=== PATIENT | female | born 1950 | race Caucasian/White ===

== ENCOUNTER → 2019-04-26 | Outpatient (CLI) | payer MEDICARE, BC | LOC: COL.RAD 12:12 | DX: M47.27 Other spondylosis with radiculopathy, lumbosacral region (principal); M43.16 Spondylolisthesis, lumbar region ==

== ENCOUNTER → 2020-04-05 | Outpatient (CLI) | payer MEDICARE, BC | LOC: MHCPAIN 13:55 | DX: M47.817 Spondylosis without myelopathy or radiculopathy, lumbosacral region (principal); M53.3 Sacrococcygeal disorders, not elsewhere classified; M79.7 Fibromyalgia; G89.29 Other chronic pain | CPT/HCPCS: G0463 ==

== ENCOUNTER → 2020-05-09 | Outpatient (CLI) | payer MEDICARE, BC | LOC: MHCPAIN 13:31 | DX: M47.817 Spondylosis without myelopathy or radiculopathy, lumbosacral region (principal); M53.3 Sacrococcygeal disorders, not elsewhere classified; M54.5 Low back pain; G89.29 Other chronic pain | CPT/HCPCS: G0463 ==

== ENCOUNTER → 2020-06-07 | Outpatient (CLI) | payer MEDICARE, BC | LOC: MHCPAIN 13:42 | DX: M47.816 Spondylosis without myelopathy or radiculopathy, lumbar region (principal); M53.3 Sacrococcygeal disorders, not elsewhere classified; M54.5 Low back pain; G89.29 Other chronic pain | CPT/HCPCS: G0463 ==

== ENCOUNTER → 2020-07-11 | Outpatient (CLI) | payer MEDICARE, BC | LOC: MHCPAIN 13:24 | DX: M47.817 Spondylosis without myelopathy or radiculopathy, lumbosacral region (principal); M79.7 Fibromyalgia; M53.3 Sacrococcygeal disorders, not elsewhere classified; M54.5 Low back pain; G89.29 Other chronic pain | CPT/HCPCS: G0463 ==

== ENCOUNTER → 2020-07-17 | Outpatient (CLI) | payer MEDICARE, BC | LOC: MHCPAIN 13:30 | DX: M47.817 Spondylosis without myelopathy or radiculopathy, lumbosacral region (principal); M54.16 Radiculopathy, lumbar region | CPT/HCPCS: J1100; Q9967 ==

== ENCOUNTER → 2020-08-15 | Outpatient (CLI) | payer MEDICARE, BC | LOC: MHCPAIN 13:33 | DX: M47.816 Spondylosis without myelopathy or radiculopathy, lumbar region (principal); M54.16 Radiculopathy, lumbar region; M53.3 Sacrococcygeal disorders, not elsewhere classified; G89.29 Other chronic pain | CPT/HCPCS: G0463 ==

== ENCOUNTER 2020-09-27 11:15 | Outpatient (RCR) | payer MEDICARE, BC | END 2020-10-24 | disposition home or self-care (01) | LOC: WSPT | DX: M79.7 Fibromyalgia (principal) ==

== ENCOUNTER → 2020-10-17 | Outpatient (CLI) | payer MEDICARE, BC | LOC: MHCPAIN 13:43 | DX: M47.816 Spondylosis without myelopathy or radiculopathy, lumbar region (principal); M54.5 Low back pain; M53.3 Sacrococcygeal disorders, not elsewhere classified; M79.2 Neuralgia and neuritis, unspecified | CPT/HCPCS: G0463 ==

== ENCOUNTER → 2020-12-13 | Outpatient (CLI) | payer MEDICARE, BC | LOC: MHCPAIN 13:36 | DX: M25.512 Pain in left shoulder (principal); M47.896 Other spondylosis, lumbar region; M79.2 Neuralgia and neuritis, unspecified; M53.3 Sacrococcygeal disorders, not elsewhere classified | CPT/HCPCS: G0463 ==

== ENCOUNTER → 2021-03-07 | Outpatient (CLI) | payer MEDICARE, BC ==
[~2021-03-07] MED LIST: ADVIL LIQUI-GE200 MG PO; ASPIRIN E.C. 8181 MG PO; DESYREL 50MG50 MG PO; ELIQUIS 5MG PO; FENTANYL 25 MCG TD; FERRO-TIME325 MG PO; GAS RELIEF125 MG PO; LYRICA300 MG PO; NORCO 325 MG-51 TAB PO; PEPCID AC20 MG PO; TYLENOL 325MG325 MG PO
== END ==
LOC: MHCPAIN 13:54
DX: M47.896 Other spondylosis, lumbar region (principal); M53.3 Sacrococcygeal disorders, not elsewhere classified; M79.2 Neuralgia and neuritis, unspecified
CPT/HCPCS: G0463

== ENCOUNTER 2021-03-13 19:24 | Inpatient (IN) | payer MEDICARE, BC ==
[~2021-03-13] VITALS: Ht 167.6 cm; Wt 86.1 kg
--- NOTE | 2021-03-13 20:40 | NUR ---
ADMITTED TO ROOM 326 PER CART. A&OX4. ORIENTED TO ROOM.
[2021-03-13 20:46] VITALS: BP 148/82; PULSE 69; TEMP 97.4
[2021-03-13] MEDS ORDERED: FENTANYL 25 MCG TD (20:48)
[2021-03-13] MEDS ORDERED: NORCO 325 MG-51 TAB PO (20:50)
[2021-03-13] MEDS ORDERED: LYRICA300 MG PO (20:50)
[2021-03-13] MEDS ORDERED: DESYREL 50MG50 MG PO (20:51)
[2021-03-13] MEDS ORDERED: PEPCID AC20 MG PO (20:52)
[2021-03-13] MEDS ORDERED: ADVIL LIQUI-GE200 MG PO (20:52)
--- NOTE | 2021-03-13 22:40 | NUR ---
REPORTED TROPONNIN LEVEL TO AMARI MORRIS.
--- NOTE | 2021-03-13 22:53 | NUR ---
PT REPORTS FENTANNYL PATCH WAS PLACED YESTERDAY AT 1200.
[2021-03-13 23:58] VITALS: BP 129/63; PULSE 91; TEMP 98.4
--- NOTE | 2021-03-14 | NUR ---
PT RESTING. NO DISTRESS AT THIS ITME. SBA TO BR. PT GETS SL DYSPNEIC ON O2 1L NC. VOIDING W/O DIFFICULTY. PT RELATES OCCASIONALLY HAS SMALL INTERMITTENT STABBING PAINS IN CHEST SINCE THIS AM. HAS HX CHRONIC PAIN/ FIBROMYALGIA AND HAS 25MCG FENTANNYL PATCH TO RT SHOULDER. PT HAS PAIN LLE TO TOUCH. ANDI HOSE TO RLE. CALL LIGHT IN REACH. PT WILL CALL FOR ASSIST TO BR.
--- NOTE | 2021-03-14 03:54 | NUR ---
PT HAS BEEN RESTING WELL. NO DISTRESS.
[2021-03-14 04:00] VITALS: BP 107/67; PULSE 64; TEMP 97.7
--- NOTE | 2021-03-14 05:03 | NUR ---
PT RESTING QUIETLY. NO COMPLAINTS.
[2021-03-14 06:52] LABS: BASO # 0.1 K/mm3 (0.0-0.2); BASO % 0.7 % (0.0-2.0); EOS # 0.2 K/mm3 (0.0-0.7); EOS % 1.8 % (0.0-4.0); GRAN # 5.1 K/mm3 (1.4-6.5); HEMATOCRIT 40.6 % (37.0-47.0); HEMOGLOBIN 13.1 g/dl (12.5-16.0); LYMPH # 1.8 K/mm3 (1.2-3.4); LYMPH % 21.3 % (20.0-51.0); MEAN CELL VOLUME 88 fl (80.0-100.0); MEAN CORPUSCULAR HEMOGLOBIN 28 pg (27-31); MEAN CORPUSCULAR HGB CONC 32 g/dl (33.0-37.0); MEAN PLATELET VOLUME 10.3 fl (7.4-10.4); MONO # 1.2 K/mm3 (0.1-0.6); MONO % 14.1 % (1.7-9.3); PLATELET COUNT 179 K/mm3 (130-400); RED BLOOD COUNT 4.63 M/mm3 (4.10-5.30); REDCELL DISTRIBUTION WIDTH-CV 13.6 % (11.5-14.5)
[2021-03-14 07:12] LABS: CALCIUM 8.8 mg/dL (8.4-10.2); CREATININE, serum 1.03 mg/dL (0.57-1.11); POTASSIUM 3.9 mmol/L (3.5-4.5)
[2021-03-14 08:00] VITALS: BP 100/78; PULSE 64; TEMP 98.1
--- NOTE | 2021-03-14 08:55 | NUR ---
PT UP TO BR WITH SBA. DOPPLER DONE BY ADRIAN AND REPORTED THAT PT HAS LG CLOT FROM MID THIGH TO ANKLE. LOVENOX GIVEN SQ ORDERED. PT APPEARS TO NOT UNDERSTAND HER CLOTTING DISORDER. SHE IS ASKING WHAT SHE ATE TO CAUSE CLOT. 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
--- NOTE | 2021-03-14 09:37 | NUR ---
Initial visit; Patient thanked Purchasing And Claims Supervisor for looking in on her and offering God's blessings.
[2021-03-14 11:28] VITALS: BP 147/89; PULSE 66; TEMP 97.4
--- NOTE | 2021-03-14 12:41 | NUR ---
Char Filter Operator Helper met with patient to discuss discharge planning. Patient lives with her , Darrel (ph#[phone]) and sees Dr. Muñiz for primary care. Patient obtains medications from [facility] with no difficulties. Patient does not use any DME at home and is normally independent with ADLS. Patient advised she believes she has Advance Directives that designate her daughter, Jolene but she isn't sure. Patient has three children: Jolene, Young, and Vita. Patient states she plans to return home upon discharge. PT is recommending home once medically stable. Discharge Plan: Home with family
[2021-03-14 16:37] VITALS: BP 148/81; PULSE 61; TEMP 97.7
[2021-03-14 20:00] VITALS: BP 167/91; PULSE 73; TEMP 98.1
[2021-03-15] VITALS: BP 118/65; PULSE 56; TEMP 98.4
[2021-03-15 04:00] VITALS: BP 141/83; PULSE 56; TEMP 97.3
[2021-03-15 06:12] LABS: BASO # 0.1 K/mm3 (0.0-0.2); BASO % 0.6 % (0.0-2.0); EOS # 0.3 K/mm3 (0.0-0.7); EOS % 3.1 % (0.0-4.0); GRAN # 5.1 K/mm3 (1.4-6.5); GRAN % 58.9 % (42.2-75.2); HEMOGLOBIN 12.8 g/dl (12.5-16.0); LYMPH # 2.2 K/mm3 (1.2-3.4); LYMPH % 25.3 % (20.0-51.0); MEAN CELL VOLUME 88 fl (80.0-100.0); MEAN CORPUSCULAR HEMOGLOBIN 28 pg (27-31); MEAN CORPUSCULAR HGB CONC 32 g/dl (33.0-37.0); MEAN PLATELET VOLUME 9.7 fl (7.4-10.4); MONO % 11.9 % (1.7-9.3); PLATELET COUNT 184 K/mm3 (130-400); RED BLOOD COUNT 4.55 M/mm3 (4.10-5.30); REDCELL DISTRIBUTION WIDTH-CV 13.6 % (11.5-14.5)
[2021-03-15 06:31] LABS: CREATININE, serum 0.95 mg/dL (0.57-1.11); POTASSIUM 3.9 mmol/L (3.5-4.5)
[2021-03-15 08:00] VITALS: BP 114/63; PULSE 70; TEMP 98.2
[2021-03-15] MEDS ORDERED: ELIQUIS 5MG PO (09:59)
[2021-03-15] MEDS ORDERED: ASPIRIN E.C. 8181 MG PO (10:03)
[2021-03-15] MEDS ORDERED: TYLENOL 325MG325 MG PO (10:06)
[2021-03-15 11:20] VITALS: BP 139/68; PULSE 58; TEMP 97
--- NOTE | 2021-03-15 12:57 | NUR ---
PT DISCHARGE HOME ON STABLE CONDITION. D/C INSTRUCTIONS, MEDICATION AND FOLLOW UP REVIEW WITH PT.QUESTIONS AND CONCERNS ADDRESSED.
[2021-03-16] MEDS ORDERED: GAS RELIEF125 MG PO (13:58)
== END 2021-03-15 12:59 | disposition home or self-care (01) | DRG 280 ==
LOC: MEDICAL 19:24 → SURG 20:45
PROVIDERS: Physician Assistant; Student in an Organized Health Care Education/Training Program; ADMIT Internal Medicine
DX: I82.412 Acute embolism and thrombosis of left femoral vein (principal); I26.99 Other pulmonary embolism without acute cor pulmonale; I21.A1 Myocardial infarction type 2; J96.01 Acute respiratory failure with hypoxia; D68.51 Activated protein C resistance; G89.29 Other chronic pain; I82.462 Acute embolism and thrombosis of left calf muscular vein; I51.9 Heart disease, unspecified; M79.7 Fibromyalgia; I44.7 Left bundle-branch block, unspecified; K21.9 Gastro-esophageal reflux disease without esophagitis; M81.0 Age-related osteoporosis without current pathological fracture; N18.9 Chronic kidney disease, unspecified; K58.9 Irritable bowel syndrome, unspecified
CPT/HCPCS: 99223-AI; 99233-AI; 99239; J1650

== ENCOUNTER 2021-03-16 08:28 | Inpatient (IN) | payer MEDICARE, BC ==
[~2021-03-16] VITALS: Ht 167.6 cm; Wt 87.3 kg
[~2021-03-16 08:28] MED LIST changes: -FERRO-TIME325 MG PO; -GAS RELIEF125 MG PO
[2021-03-16 09:19] LABS: BASO % 0.5 % (0.0-2.0); EOS # 0.1 K/mm3 (0.0-0.7); EOS % 1.4 % (0.0-4.0); GRAN # 6.1 K/mm3 (1.4-6.5); GRAN % 75.8 % (42.2-75.2); HEMATOCRIT 38.9 % (37.0-47.0); HEMOGLOBIN 12.7 g/dl (12.5-16.0); LYMPH % 12.8 % (20.0-51.0); MEAN CELL VOLUME 87 fl (80.0-100.0); MEAN CORPUSCULAR HEMOGLOBIN 28 pg (27-31); MEAN CORPUSCULAR HGB CONC 33 g/dl (33.0-37.0); MEAN PLATELET VOLUME 9.6 fl (7.4-10.4); MONO # 0.8 K/mm3 (0.1-0.6); MONO % 9.4 % (1.7-9.3); PLATELET COUNT 187 K/mm3 (130-400); RED BLOOD COUNT 4.49 M/mm3 (4.10-5.30); REDCELL DISTRIBUTION WIDTH-CV 13.4 % (11.5-14.5)
[2021-03-16 09:24] LABS: INR 1.5 (0.8-3.0); PROTHROMBIN TIME 16.7 SECONDS (9.7-12.8)
[2021-03-16 09:33] LABS: ALBUMIN 3.6 gm/dL (3.4-4.8); BILIRUBIN,TOTAL 0.7 mg/dL (0.2-1.2); C-REACTIVE PROTEIN 3.01 mg/dL (0.00-0.50); CALCIUM 8.9 mg/dL (8.4-10.2); CREATININE, serum 0.95 mg/dL (0.57-1.11); POTASSIUM 3.9 mmol/L (3.5-4.5); TOTAL PROTEIN 7.3 gm/dL (6.2-8.1)
[2021-03-16 10:42] LABS: COLLECTION METHOD CLEAN CATCH
[2021-03-16 10:58] LABS: PH 7 (5-8); SQUAMOUS EPITHELIAL 0-2 /hpf (0-10); URINE APPEARANCE Clear (CLEAR/HAZY); URINE BACTERIA None Seen /hpf (NONE SEEN); URINE BILIRUBIN Negative (NEGATIVE); URINE BLOOD 1+ (NEGATIVE); URINE COLOR Straw (YELLOW); URINE GLUCOSE Negative (NEGATIVE); URINE KETONE Negative (NEGATIVE); URINE LEUKOCYTE ESTERASE Negative (NEGATIVE); URINE NITRATE Negative (NEGATIVE); URINE PROTEIN(semi-quant) Negative (NEGATIVE); URINE RBC 0-2 /hpf (0-2); URINE UROBILINOGEN Negative (NEGATIVE)
[2021-03-16 11:34] VITALS: BP 140/72; PULSE 68
--- NOTE | 2021-03-16 11:35 | NUR ---
SEE MERGE FOR ALL MEDICATION ADMINISTRATION TIMES/DOSAGES AND INTRA/POST PROCEDURE SEDATION ASSESSMENTS.
[2021-03-16] MEDS ORDERED: GAS RELIEF125 MG PO (13:58)
[2021-03-16 14:37] LABS: HEMATOCRIT 34.1 % (37.0-47.0)
[2021-03-16 16:00] VITALS: BP 136/64; PULSE 68; TEMP 98.1
[2021-03-16 18:17] LABS: HEMOGLOBIN 11.1 g/dl (12.5-16.0)
[2021-03-16 18:19] LABS: HEMATOCRIT 33.4 % (37.0-47.0)
--- NOTE | 2021-03-16 19:43 | NUR ---
THE PATIENT HAD UNEVENTFUL EVENING. STILL COMPLAINS OF PAIN IN THE ABD. PT IS RCVING [place] HAS A FENTANYL PATCH ON THE UPPER LEFT ARM. THE PATIENT IS SCARED TO MOVE SHE BELIEVES IT WILL CONTINUE THE BLEEDING. SHE HAS BEEN USING THE BEDPAN NEEDED TODAY. NO FURTHER CONERNS. REPORT GIVEN TO RUSS ALEXANDRE.
[2021-03-16 20:42] VITALS: BP 108/66; PULSE 63; TEMP 97.3
--- NOTE | 2021-03-16 23:54 | NUR ---
Patient A/Ox4. Patient c/o pain to RLQ abdomen area 7 or 8 out of 10. RLQ hematoma site remains firm. IVC filter site dressing C/D/I. All scheduled meds given per MAY. PRN Vadito given for pain. Call light in reach. Will continue to monitor.
[2021-03-16 23:59] VITALS: BP 95/61; PULSE 75; TEMP 98.1
[2021-03-17 01:00] VITALS: BP 101/60; PULSE 72
[2021-03-17 03:13] VITALS: BP 109/57; PULSE 72; TEMP 98.2
--- NOTE | 2021-03-17 06:15 | NUR ---
Contacted by oil well perforator operator that patient having ST depression at 02:45 am. Called MELI Ya and updated. EKG was ordered by MELI Ya. Called Dr. Ely for cardiology consult at 6 am. Patient's RLQ abdominal hematoma site slightly softer compared to last night. Patient received PRN pain med twice over the night for RLQ abdominal pain. Call light in reach. Will continue to monitor.
--- NOTE | 2021-03-17 07:09 | NUR ---
PT LAYING IN BED AT THIS TIME. STATES THAT HER PAIN IS MILD. THE PATIENT'S HEMATOMA HAS BEGUN TO SOFTEN AND REDUCE. WILL CONTINUE TO MONITOR AND RETURN FOR FULL ASSESSMENT.
[2021-03-17 07:49] VITALS: BP 109/60; PULSE 74; TEMP 98.5
[2021-03-17 07:50] LABS: CALCIUM 8.4 mg/dL (8.4-10.2); CREATININE, serum 1.02 mg/dL (0.57-1.11); POTASSIUM 4.3 mmol/L (3.5-4.5)
[2021-03-17 08:33] LABS: BASO % 0.2 % (0.0-2.0); EOS % 0.1 % (0.0-4.0); GRAN # 10.4 K/mm3 (1.4-6.5); LYMPH # 1.7 K/mm3 (1.2-3.4); LYMPH % 12.4 % (20.0-51.0); MEAN CELL VOLUME 87 fl (80.0-100.0); MEAN CORPUSCULAR HGB CONC 33 g/dl (33.0-37.0); MEAN PLATELET VOLUME 10.4 fl (7.4-10.4); MONO # 1.5 K/mm3 (0.1-0.6); MONO % 10.9 % (1.7-9.3); PLATELET COUNT 196 K/mm3 (130-400); RED BLOOD COUNT 3.12 M/mm3 (4.10-5.30); REDCELL DISTRIBUTION WIDTH-CV 13.6 % (11.5-14.5)
[2021-03-17 08:37] LABS: HEMATOCRIT 27.1 % (37.0-47.0); HEMOGLOBIN 8.9 g/dl (12.5-16.0); MEAN CORPUSCULAR HEMOGLOBIN 29 pg (27-31)
[2021-03-17 11:06] VITALS: BP 130/69; PULSE 77; TEMP 98.1
--- NOTE | 2021-03-17 14:50 | NUR ---
Brass Molder met with patient to discuss discharge planning. Patient was discharged from hospital earlier this week and states she was unable to follow up with her primray care physician during this time. Patient lives in [place] with her , Darrel (ph#[phone]) [address] sees Dr. Muñiz for primary care. Patient obtains medications from [facility] and does not normally use any DME. Patient advised she has been getting around at home okay since her previous discharge and that she is independent with ADLS. Patient does not have Advance Directives in EMR, but has three children: Jolene, Young, and Vita. SW discussed Home Health services with patient who is agreeable and would like referral sent to [facility]. NGUYEN contacted Jackie at [facility] and faxed referral. Discharge Plan: Home with [facility]
[2021-03-17 15:38] LABS: HEMATOCRIT 25.4 % (37.0-47.0); HEMOGLOBIN 8.4 g/dl (12.5-16.0)
[2021-03-17 16:53] VITALS: BP 136/60; PULSE 81; TEMP 97.3
--- NOTE | 2021-03-17 18:32 | NUR ---
PT HAS HAD UNEVENTFUL DAY. THE HEMATOMA ON HER ABD HAS DECREASED IN SIZE AND HAS SOFTENED. THE PATIENT'S PAIN HOWEVER, HAS REMAINED HIGHER D/T TENDERNESS OF THE HEMATOMA AND PATIENT HAS BEEN RECEIVING PAIN MEDICATION FOR THAT.
[2021-03-17 19:31] VITALS: BP 105/74; PULSE 80; TEMP 98.2
--- NOTE | 2021-03-17 22:13 | NUR ---
Patient pleasant, alert and oriented. Patient denies chest pain or SOB. Patient reports RLQ abdominal pain 7 or 8 out of 10. RLQ abdominal hematoma site sofer than yesterday. All scheduled meds given per MAY. Ice water provided per patient request. Call light in reach. Will continue to monitor.
[2021-03-18] VITALS (7 sets, daily range): BP systolic 99–122; BP diastolic 42–65; PULSE 72–98; TEMP 97.9–99.1
[2021-03-18 06:25] LABS: MEAN CELL VOLUME 85 fl (80.0-100.0); MEAN CORPUSCULAR HGB CONC 33 g/dl (33.0-37.0); MEAN PLATELET VOLUME 10.1 fl (7.4-10.4); PLATELET COUNT 189 K/mm3 (130-400); RED BLOOD COUNT 2.69 M/mm3 (4.10-5.30); REDCELL DISTRIBUTION WIDTH-CV 13.7 % (11.5-14.5)
[2021-03-18 06:30] LABS: HEMATOCRIT 22.8 % (37.0-47.0); HEMOGLOBIN 7.5 g/dl (12.5-16.0); MEAN CORPUSCULAR HEMOGLOBIN 28 pg (27-31)
[2021-03-18 06:31] LABS: CALCIUM 8.5 mg/dL (8.4-10.2); CREATININE, serum 0.98 mg/dL (0.57-1.11)
[2021-03-18 15:31] LABS: HEMATOCRIT 22.9 % (37.0-47.0); HEMOGLOBIN 7.6 g/dl (12.5-16.0)
--- NOTE | 2021-03-18 19:08 | NUR ---
Patient had an uneventful day. PRN pain medications given. Shift assessment performed. Scheduled medications given. Patient denies any further needs at this time. VSS. Patient A&O. Call light in reach.
--- NOTE | 2021-03-18 21:54 | NUR ---
Patient resting in bed with eyes closed upon enter the room. Patient easily awake with voice. Patient pleasant, A/Ox4. Patient reports pain to RLQ abdominal area 7 out of 10. Patient received pain med 1 hour ago. RLQ abdominal hematoma site softer compared to yesterday. All scheduled meds given per MAY. Patient denies further needs at this time. Call light in reach. Will continue to monitor.
[2021-03-19] VITALS (11 sets, daily range): BP systolic 108–136; BP diastolic 58–76; PULSE 70–87; TEMP 98–100.2
--- NOTE | 2021-03-19 02:54 | NUR ---
Patient c/o pain 3 out of 10 to her back side of neck. Patient denies chest pain, SOB, headache or dizziness. Called EJ Cullen and updated. Applied K-Pad to her back of neck area per order. PRN pain med given per MAY. Call light in reach. Will continue to monitor.
--- NOTE | 2021-03-19 06:34 | NUR ---
Patient states feeling better this morning. Patient denies need for pain med at this time. Hot tea provided per patient request. Call light in reach.
[2021-03-19 07:12] LABS: MEAN CELL VOLUME 87 fl (80.0-100.0); MEAN CORPUSCULAR HGB CONC 33 g/dl (33.0-37.0); MEAN PLATELET VOLUME 9.7 fl (7.4-10.4); PLATELET COUNT 196 K/mm3 (130-400); RED BLOOD COUNT 2.36 M/mm3 (4.10-5.30); REDCELL DISTRIBUTION WIDTH-CV 13.9 % (11.5-14.5)
[2021-03-19 07:23] LABS: CALCIUM 8.3 mg/dL (8.4-10.2); CREATININE, serum 0.92 mg/dL (0.57-1.11); POTASSIUM 3.6 mmol/L (3.5-4.5)
[2021-03-19 07:32] LABS: HEMATOCRIT 20.6 % (37.0-47.0); MEAN CORPUSCULAR HEMOGLOBIN 29 pg (27-31)
[2021-03-19 07:34] LABS: HEMOGLOBIN 6.8 g/dl (12.5-16.0)
--- NOTE | 2021-03-19 07:49 | NUR ---
CRITICAL HGB CALLED TO RANDELL, WHO READ BACK THE RESULTS.
--- NOTE | 2021-03-19 12:49 | NUR ---
First visit from the hotel server. No needs right now.
--- NOTE | 2021-03-19 18:00 | NUR ---
Scheduled medications given. Shift assessment performed. Patient recieved 1 unit of blood today. Tolerated well. HGB will be rechecked this PM at 1900. Patient given PRN medication 2x today for ABD pain. Hematoma on ABD has reduced in size and continues to soften. Patient is currently on RA. VSS. Patient A&O. Patient denies any further pain, discomfort, or further needs at this time. Call light in reach.
[2021-03-19 19:17] LABS: HEMATOCRIT 24.7 % (37.0-47.0); HEMOGLOBIN 8.2 g/dl (12.5-16.0)
--- NOTE | 2021-03-19 20:45 | NUR ---
Patient is resting in bed, alert and oriented x 4. Complains of pain but refused pain medication at this time. Telemetry in place, NSR. Assessment completed, medications provided. No further needs at this time. Call light within reach.
--- NOTE | 2021-03-19 23:44 | NUR ---
Patient with some temp 100.2 Tylenol provided. Aysha Tinsley notified.
[2021-03-20 03:44] VITALS: BP 123/60; PULSE 72; TEMP 98.7
--- NOTE | 2021-03-20 06:15 | NUR ---
Patient is now with VSS, no fever. She asked for pain medication once. No other issues at night. Report will be given to day RN.
[2021-03-20 06:22] LABS: BASO % 0.4 % (0.0-2.0); EOS # 0.3 K/mm3 (0.0-0.7); EOS % 2.9 % (0.0-4.0); GRAN # 6.1 K/mm3 (1.4-6.5); GRAN % 67.8 % (42.2-75.2); LYMPH # 1.5 K/mm3 (1.2-3.4); LYMPH % 16.4 % (20.0-51.0); MEAN CELL VOLUME 90 fl (80.0-100.0); MEAN CORPUSCULAR HGB CONC 32 g/dl (33.0-37.0); MEAN PLATELET VOLUME 9.7 fl (7.4-10.4); MONO # 1.1 K/mm3 (0.1-0.6); MONO % 11.7 % (1.7-9.3); PLATELET COUNT 222 K/mm3 (130-400); RED BLOOD COUNT 2.56 M/mm3 (4.10-5.30); REDCELL DISTRIBUTION WIDTH-CV 14.1 % (11.5-14.5)
[2021-03-20 06:35] LABS: CALCIUM 8.3 mg/dL (8.4-10.2); CREATININE, serum 0.88 mg/dL (0.57-1.11); POTASSIUM 3.9 mmol/L (3.5-4.5)
[2021-03-20 06:38] LABS: HEMATOCRIT 22.9 % (37.0-47.0); HEMOGLOBIN 7.3 g/dl (12.5-16.0); MEAN CORPUSCULAR HEMOGLOBIN 29 pg (27-31)
[2021-03-20 08:02] VITALS: BP 139/60; PULSE 97; TEMP 98
[2021-03-20 11:28] VITALS: BP 120/61; PULSE 79; TEMP 98.1
[2021-03-20 16:30] VITALS: BP 114/64; PULSE 86; TEMP 98.2
--- NOTE | 2021-03-20 18:55 | NUR ---
Patient has had an ok day. Scheduled medications given. Shift assessment performed. Patient has been C/O 09/09 pain intermittently today. Patient states that pain is on her right side and has moved up into her RUQ. Decribes it as a pulling sensation that increases with movement. Patient states that fentanyl patch and hydrocodone have not been effective. EJ Pro notified. Patient denies any further pain, discomfort, SOA, or further needs at this time. VSS. Patient A&O. Call light in reach.
[2021-03-20 20:25] VITALS: BP 129/58; PULSE 84; TEMP 99.6
--- NOTE | 2021-03-20 20:50 | NUR ---
Patient is sitted in bed, alert and oriented x 4. States she continues having pain in her right abdomen when walling and in the right back when sitting. Taking norco PRN. Telemetry in place, NSR. Assessment completed, meds provided. No further needs at this time. Call light within reach.
[2021-03-20 23:30] VITALS: BP 117/65; PULSE 81; TEMP 98.8
[2021-03-21 04:25] VITALS: BP 128/60; PULSE 80; TEMP 99.6
--- NOTE | 2021-03-21 06:20 | NUR ---
Pt has had a calm night, no major needs. She just asked for PRN pain medication once. Report will be given to day RN.
[2021-03-21 06:33] LABS: BASO % 0.4 % (0.0-2.0); EOS # 0.2 K/mm3 (0.0-0.7); EOS % 3.2 % (0.0-4.0); GRAN # 4.1 K/mm3 (1.4-6.5); GRAN % 55.5 % (42.2-75.2); LYMPH # 1.7 K/mm3 (1.2-3.4); LYMPH % 23.1 % (20.0-51.0); MEAN CELL VOLUME 87 fl (80.0-100.0); MEAN CORPUSCULAR HGB CONC 32 g/dl (33.0-37.0); MEAN PLATELET VOLUME 9.3 fl (7.4-10.4); MONO # 1.3 K/mm3 (0.1-0.6); MONO % 16.9 % (1.7-9.3); PLATELET COUNT 244 K/mm3 (130-400); RED BLOOD COUNT 2.69 M/mm3 (4.10-5.30); REDCELL DISTRIBUTION WIDTH-CV 14.3 % (11.5-14.5)
[2021-03-21 06:45] LABS: HEMATOCRIT 23.5 % (37.0-47.0); HEMOGLOBIN 7.5 g/dl (12.5-16.0); MEAN CORPUSCULAR HEMOGLOBIN 28 pg (27-31)
[2021-03-21 06:50] LABS: CALCIUM 8.4 mg/dL (8.4-10.2); CREATININE, serum 0.81 mg/dL (0.57-1.11); POTASSIUM 3.6 mmol/L (3.5-4.5)
[2021-03-21 08:11] VITALS: BP 107/65; PULSE 94; TEMP 99
[2021-03-21] MEDS ORDERED: FERRO-TIME325 MG PO (09:36)
--- NOTE | 2021-03-21 10:16 | NUR ---
The patient is to discharge back home with her today, 03/21, with home health services for nursing home/PT/OT from [facility] . NGUYEN notified and faxed orders to Kait at [facility]. Kait reports that she will visit the patient tomorrow and call the patient tomorrow morning to set up a time to come see her. NGUYEN met with the patient and updated her on the above. She had no other questions for NGUYEN. No additional needs at this time.
--- NOTE | 2021-03-21 10:36 | NUR ---
Assessment completed, alert/oriented, vital signs stable, reports back pain/ this is chronic and using [place] PRN, abd hematoma is stable and soft, hemaglobin stable at 7.5, will discuss plan of care with , patient denies needs, took morning meds, ate breakfast and denies needs
[2021-03-21 11:54] VITALS: BP 121/62; PULSE 70; TEMP 98.2
--- NOTE | 2021-03-21 14:37 | NUR ---
Patient discharging home, d/c instructions given to patient, instructed to follow up with PCP/Pulm/Onc/Sx as we have scheduled for her, IV and tele removed, instructed to keep groin site from IVC fileter placement access site clean and dry, dressing remvoed at this time, leaving with her , I escorted her out the door
== END 2021-03-21 14:41 | disposition home or self-care (01) | DRG 555 ==
LOC: COL.ER 08:28 → MEDICAL 10:30
PROVIDERS: Emergency Medicine; Physician Assistant; ADMIT Internal Medicine
PROC: 06H03DZ Insertion of Intraluminal Device into Inferior Vena Cava, Percutaneous Approach (ICD-10-PCS; principal; 2021-03-16)
PROC: 30233N1 Transfusion of Nonautologous Red Blood Cells into Peripheral Vein, Percutaneous Approach (ICD-10-PCS; 2021-03-19)
DX: M79.81 Nontraumatic hematoma of soft tissue (principal); I26.99 Other pulmonary embolism without acute cor pulmonale; D68.51 Activated protein C resistance; D62 Acute posthemorrhagic anemia; I82.4Z2 Acute embolism and thrombosis of unspecified deep veins of left distal lower extremity; I51.89 Other ill-defined heart diseases; I34.0 Nonrheumatic mitral (valve) insufficiency; I44.7 Left bundle-branch block, unspecified; I25.2 Old myocardial infarction; M79.7 Fibromyalgia; I95.9 Hypotension, unspecified; K21.9 Gastro-esophageal reflux disease without esophagitis; M81.0 Age-related osteoporosis without current pathological fracture; Z79.891 Long term (current) use of opiate analgesic; Z79.82 Long term (current) use of aspirin; Z79.01 Long term (current) use of anticoagulants; Z90.711 Acquired absence of uterus with remaining cervical stump; Z88.2 Allergy status to sulfonamides; Z88.1 Allergy status to other antibiotic agents
CPT/HCPCS: 99232-AI; 99239; C1880; C1894; G0378; J1644; J2250; J3010; J7030; J7050; P9016; Q9967

== ENCOUNTER → 2021-05-24 | Outpatient (CLI) | payer MEDICARE, BC ==
[~2021-05-24] MED LIST changes: +FERRO-TIME325 MG PO; +GAS RELIEF125 MG PO
== END ==
LOC: MHCPAIN 05-23 13:34
DX: M47.816 Spondylosis without myelopathy or radiculopathy, lumbar region (principal); M54.50 Low back pain, unspecified; M53.3 Sacrococcygeal disorders, not elsewhere classified; M79.2 Neuralgia and neuritis, unspecified
CPT/HCPCS: G0463

== ENCOUNTER → 2021-06-06 | Outpatient (CLI) | payer MEDICARE, BC ==
[2021-06-06 13:44] LABS: CALCIUM 9.3 mg/dL (8.4-10.2); CREATININE, serum 0.98 mg/dL (0.57-1.11); POTASSIUM 4.3 mmol/L (3.5-4.5)
== END ==
LOC: COL.LAB 12:38 → COL.RAD 13:00
PROVIDERS: Internal Medicine Pulmonary Disease
DX: Z86.718 Personal history of other venous thrombosis and embolism (principal)
CPT/HCPCS: Q9967

== ENCOUNTER → 2021-08-13 | Outpatient (CLI) | payer MEDICARE, BC | LOC: MHCPAIN 14:03 | DX: M47.816 Spondylosis without myelopathy or radiculopathy, lumbar region (principal); M54.50 Low back pain, unspecified; M53.3 Sacrococcygeal disorders, not elsewhere classified; N18.9 Chronic kidney disease, unspecified; D68.51 Activated protein C resistance | CPT/HCPCS: G0463 ==

== ENCOUNTER → 2021-09-12 | Outpatient (CLI) | payer MEDICARE, BC | LOC: COL.VAS 12:30 | DX: I34.0 Nonrheumatic mitral (valve) insufficiency (principal); I51.7 Cardiomegaly; Z86.711 Personal history of pulmonary embolism; Z86.718 Personal history of other venous thrombosis and embolism ==

== ENCOUNTER 2021-10-01 13:17 | Outpatient (CLI) | payer MEDICARE, BC ==
[~2021-10-01] VITALS: Ht 165.1 cm; Wt 86.9 kg
[2021-10-01] MEDS ORDERED: XARELTO20 MG PO (14:22)
[2021-10-01] MEDS ORDERED: ADVIL LIQUI-GE200 MG PO (14:25)
[2021-10-01] MEDS ORDERED: CALCIUM 600 PLU1 TAB PO (14:28)
[2021-10-01 14:30] VITALS: BP 134/74; PULSE 55; TEMP 97.8
[2021-10-01 14:33] LABS: INR 1.1 (0.8-3.0); PROTHROMBIN TIME 12.9 SECONDS (9.7-12.8)
[2021-10-01 16:00] VITALS: BP 130/78; PULSE 54; TEMP 97.6
[2021-10-01 16:15] VITALS: BP 123/71; PULSE 49
[2021-10-01 16:30] VITALS: BP 131/77; PULSE 54
[2021-10-01 16:45] VITALS: BP 123/71; PULSE 56
[2021-10-01 17:00] VITALS: BP 137/78; PULSE 56
--- NOTE | 2021-10-01 17:15 | NUR ---
DISCHARGE INSTRUCTIONS GIVEN, VERBALIZED UNDERSTANDING. DRESSING DRY AND INTACT BUT CHANGED FOR PATIENT COMFORT. PATIENT DRESSED AND WHEELED OUT TO CAR BY RN ALONG WITH .
== END 2021-10-01 17:29 | disposition home or self-care (01) ==
LOC: COL.CAR 13:17
PROVIDERS: Radiology Diagnostic Radiology
DX: Z86.711 Personal history of pulmonary embolism (principal); Z86.718 Personal history of other venous thrombosis and embolism
CPT/HCPCS: C1769; J2250; J3010

== ENCOUNTER → 2021-11-13 | Outpatient (CLI) | payer MEDICARE, BC ==
[~2021-11-13] MED LIST changes: +CALCIUM 600 PLU1 TAB PO; +XARELTO20 MG PO
== END ==
LOC: MHCPAIN 13:30
DX: M79.2 Neuralgia and neuritis, unspecified (principal); M47.896 Other spondylosis, lumbar region; M53.3 Sacrococcygeal disorders, not elsewhere classified
CPT/HCPCS: G0463

== ENCOUNTER → 2022-04-30 | Outpatient (CLI) | payer MEDICARE, BC | LOC: MHCPAIN 13:29 | DX: M47.817 Spondylosis without myelopathy or radiculopathy, lumbosacral region (principal); M47.812 Spondylosis without myelopathy or radiculopathy, cervical region; G89.29 Other chronic pain | CPT/HCPCS: G0463 ==

== ENCOUNTER → 2023-04-01 | Outpatient (CLI) | payer MEDICARE, BC | LOC: MHCPAIN 12:58 | DX: M47.812 Spondylosis without myelopathy or radiculopathy, cervical region (principal); M47.816 Spondylosis without myelopathy or radiculopathy, lumbar region; M79.18 Myalgia, other site | CPT/HCPCS: G0463 ==

== ENCOUNTER → 2023-06-25 | Outpatient (CLI) | payer MEDICARE, BC | LOC: MHCPAIN 13:12 | DX: M47.812 Spondylosis without myelopathy or radiculopathy, cervical region (principal); M47.816 Spondylosis without myelopathy or radiculopathy, lumbar region; M79.2 Neuralgia and neuritis, unspecified | CPT/HCPCS: G0463 ==

== ENCOUNTER → 2023-10-22 | Outpatient (CLI) | payer MEDICARE, BC | LOC: MHCPAIN 13:21 | DX: M43.16 Spondylolisthesis, lumbar region (principal); M47.816 Spondylosis without myelopathy or radiculopathy, lumbar region; M79.7 Fibromyalgia; M85.80 Other specified disorders of bone density and structure, unspecified site; M25.511 Pain in right shoulder; M79.2 Neuralgia and neuritis, unspecified; N18.9 Chronic kidney disease, unspecified; D68.51 Activated protein C resistance; Z79.891 Long term (current) use of opiate analgesic | CPT/HCPCS: G0463 ==

== ENCOUNTER → 2023-12-24 | Outpatient (CLI) | payer MEDICARE, BC | LOC: MHCPAIN 13:35 | DX: M25.511 Pain in right shoulder (principal); M79.7 Fibromyalgia; M81.0 Age-related osteoporosis without current pathological fracture; M43.16 Spondylolisthesis, lumbar region; M47.817 Spondylosis without myelopathy or radiculopathy, lumbosacral region | CPT/HCPCS: G0463 ==